=== PATIENT | male | born 1965 | race Caucasian/White ===

== ENCOUNTER 2017-01-13 18:55 | Emergency (ER) | payer OTHER ==
[~2017-01-13] VITALS: Ht 177.8 cm; Wt 89.0 kg
[~2017-01-13 18:55] MED LIST: ADVAIR 250/501 DISK IH; ADVAIR HFA120 INHALA IH; ASPIR 8181 M1 PO; ATIVAN0.5 MG PO; ATORVASTATIN CA40 MG PO; ATORVASTATIN CA80 MG PO; AUGMENTIN500 MG PO; BACLOFEN10 MG PO; BIAXIN500 MG PO; CIPRO500 MG PO; CLINDAMYCIN HC150 MG PO; COLACE100 MG PO; DAY TIME SOFTG1 EACH PO; KEPPRA1000 MG PO; KEPPRA750 MG PO; LANTUS 10100 UNITS/ SC; LANTUS100 UNIT/1; LEVAQUIN750 MG PO; LEVOTHYROXINE50 MCG PO; LOPRESSOR50 MG PO; LORAZEPAM0.5 MG PO; LYRICA200 MG PO; METHADONE10 MG PO; METOPROLOL PO; METOPROLOL TART50 MG PO; MOTRIN IB200 MG PO; MOTRIN800 MG PO; MOVANTIK25 MG PO; NAPROSYN500 MG PO; NEURONTIN300 MG PO; NOVOLOG 10100 UNITS/ SC; NOVOLOG100 UNIT/2; PERCOCET 10/1 TABLET PO; PERCOCET 7.51 TABLET PO; PREDNISONE20 MG PO; Percocet 5/325,Endoc PO; SIMVASTATIN20 MG PO; SIMVASTATIN5 MG PO; SINUS PE DECONG10 MG PO; SPIRIVA RESPIMAT4 GM IH; SPIRIVA1 INHALATI IH; TUMS500 MG PO; ULTRAM50 MG PO; VENTOLIN HFA18 GM IH; XARELTO15 MG PO; XARELTO20 MG PO; ZESTRIL20 MG PO; ZESTRIL40 MG PO; ZOFRAN4 MG PO
[2017-01-13 19:18] LABS: POINT-OF-CARE METER ID UU13113778
[2017-01-13 20:26] LABS: EOSINOPHIL (%) 0 % (0-5); IMMATURE GRANULOCYTE (%) 0.3 % (0.0-0.7); INSTRUMENT ABS NEUTROPHIL CT 9.2 K/uL; LYMPHOCYTE COUNT 0.4 K/uL (1.0-2.8); MCH 31.7 PG (29.0-34.0); MCHC 36.1 G/DL (30.0-36.0); MCV 87.8 FL (86-99); MEAN PLAT.VOLUME 10.1 uM^3 (9.0-12.4); MONOCYTE (%) 6.4 % (3-12); MONOCYTE COUNT 0.7 K/uL (0-0.8); NEUTROPHIL (%) 89.2 % (45-76); NEUTROPHIL COUNT 9.2 K/uL (1.8-6.4); PLATELET COUNT 79 K/uL (156-360); RBC DIS.WIDTH-CV 12.5 % (11.8-14.6); RBC DIS.WIDTH-SD 40.1 % (39-53); WHITE BLOOD COUNT 10.4 K/uL (4.1-10.2)
[2017-01-13 20:35] LABS: CHLORIDE 101 mEq/L (99-109); POTASSIUM 4.4 mEq/L (3.7-5.4); SODIUM 130 mEq/L (136-147)
[2017-01-13 20:37] LABS: GLUCOSE 340 mg/dL (70-99)
[2017-01-13 20:38] LABS: ANION GAP 8 MEQ/L (2-14)
[2017-01-13 20:40] LABS: GFR ESTIMATE (CALCULATED) > 59 mL/min/
[2017-01-13 20:41] LABS: UREA NITROGEN (BUN) 16 mg/dL (9-23)
[2017-01-13] MEDS ORDERED: CLEOCIN300 MG PO (22:27)
[2017-01-13 23:38] VITALS: BP 118/70
== END 2017-01-13 23:39 | disposition home or self-care (01) ==
LOC: EME 18:55
DX: L03.031 Cellulitis of right toe (principal); E11.40 Type 2 diabetes mellitus with diabetic neuropathy, unspecified; I10 Essential (primary) hypertension; J44.9 Chronic obstructive pulmonary disease, unspecified; K21.9 Gastro-esophageal reflux disease without esophagitis; M79.7 Fibromyalgia; F32.9 Major depressive disorder, single episode, unspecified; F41.9 Anxiety disorder, unspecified; R56.9 Unspecified convulsions; F17.200 Nicotine dependence, unspecified, uncomplicated; Z89.412 Acquired absence of left great toe; Z89.422 Acquired absence of other left toe(s); Z79.4 Long term (current) use of insulin; Z86.711 Personal history of pulmonary embolism; Z88.0 Allergy status to penicillin; Z88.5 Allergy status to narcotic agent
CPT/HCPCS: 71010; 80048; 81003; 82948; 83605; 85025; 87040; 87077; 87801; 99281; 99284